=== PATIENT | male | born 1960 | race Caucasian/White ===

== ENCOUNTER 2016-10-19 22:44 | Emergency (ER) | payer OTHER ==
[~2016-10-19] VITALS: Ht 175.3 cm; Wt 73.9 kg
[~2016-10-19 22:44] MED LIST: FLEXERIL PO; NOHOMEMEDICATIONS
[2016-10-19 23:23] LABS: URINE BILIRUBIN NEGATIVE (Negative); URINE BLOOD 1+ (Negative); URINE COLOR YELLOW; URINE GLUCOSE-RANDOM* NEGATIVE (Negative); URINE KETONES NEGATIVE (Negative); URINE PROTEIN (DIPSTICK) NEGATIVE (Negative); URINE SPECIFIC GRAVITY <= 1.005 (1.003-1.035); URINE UROBILINOGEN 0.2 E.U./dl (0.2-1.0)
[2016-10-19 23:33] LABS: URINE LEUKOCYTES-REFLEX 3+ (Negative)
[2016-10-19 23:33] LABS: HEMATOCRIT 41.4 % (42.0-52.0); HEMOGLOBIN 14.2 gm/dL (14.0-18.0); MCH 32.9 pg (26.0-34.0); MCHC 34.3 g/dL (28.0-37.0); MCV 95.8 fL (80.0-100.0); PLATELET COUNT 165 thou/uL (150-400); RBC 4.32 mil/uL (4.50-6.00); RDW 13.4 % (10.5-14.5); WBC 12.5 thou/uL (4.0-11.0)
[2016-10-19 23:35] LABS: MANUAL DIFF YES
[2016-10-19 23:36] LABS: CALCIUM 9.1 mg/dL (8.5-10.1); CREATININE 1.1 mg/dL (0.7-1.3); POTASSIUM 3.6 mmol/L (3.5-5.1)
[2016-10-19 23:40] LABS: SQUAMOUS 0-3 Few /LPF (0-3)
[2016-10-19 23:41] LABS: CASTS None Seen /LPF (None Seen); CRYSTALS None Seen /LPF (None Seen); URINE RBC 3-10 Few /HPF (0-2); URINE WBC-REFLEX >25 Many /HPF (0-5)
[2016-10-19 23:42] LABS: ALBUMIN 3.8 g/dL (3.4-5.0); TOTAL BILIRUBIN 0.6 mg/dL (<0.1-1.0); TOTAL PROTEIN 8.8 g/dL (6.4-8.2)
[2016-10-20] MEDS ORDERED: BACTRIM DS TAB1 EACH PO (00:04)
[2016-10-20] MEDS ORDERED: FLOMAX0.4 MG PO (00:04)
[2016-10-20 00:17] VITALS: BP 109/59
[2016-10-20 00:34] LABS: ABSOLUTE NEUTROPHILS 9.8 thou/uL (1.4-8.2); LARGE PLATELETS RARE; TOTAL CELL COUNT 100
== END 2016-10-20 00:24 | disposition home or self-care (01) ==
LOC: ER 22:44
PROVIDERS: Emergency Medicine
DX: N41.0 Acute prostatitis (principal); F10.99 Alcohol use, unspecified with unspecified alcohol-induced disorder

== ENCOUNTER 2020-07-13 10:36 | Emergency (ER) | payer OTHER ==
[~2020-07-13] VITALS: Ht 172.7 cm; Wt 70.8 kg
[~2020-07-13 10:36] MED LIST changes: +BACTRIM DS TAB1 EACH PO; +FLOMAX0.4 MG PO
[2020-07-13 11:19] LABS: ABSOLUTE NEUTROPHILS 3.5 thou/uL (1.4-8.2); BASOPHILS 0.3 % (0.0-2.0); EOSINOPHILS 0.7 % (0.0-3.0); HEMATOCRIT 40.6 % (42.0-52.0); HEMOGLOBIN 13.5 gm/dL (14.0-18.0); LYMPHOCYTES 22.1 % (24.0-44.0); MCH 32.5 pg (26.0-34.0); MCHC 33.2 g/dL (28.0-37.0); MCV 97.9 fL (80.0-100.0); MONOCYTES 7.6 % (1.0-8.0); PLATELET COUNT 199 thou/uL (150-400); POLYS 69.3 % (36.0-66.0); RBC 4.15 mil/uL (4.50-6.00); RDW 13.5 % (10.5-14.5); WBC 5.1 thou/uL (4.0-11.0)
[2020-07-13 11:22] LABS: URINE BILIRUBIN NEGATIVE (Negative); URINE BLOOD NEGATIVE (Negative); URINE CLARITY CLEAR; URINE COLOR YELLOW; URINE GLUCOSE-RANDOM* NEGATIVE (Negative); URINE KETONES NEGATIVE (Negative); URINE LEUKOCYTES-REFLEX NEGATIVE (Negative); URINE NITRITE-REFLEX NEGATIVE (Negative); URINE PROTEIN (DIPSTICK) NEGATIVE (Negative); URINE UROBILINOGEN 0.2 E.U./dl (0.2-1.0)
[2020-07-13 11:28] LABS: ANION GAP 7 mmol/L (7-16); BUN 11 mg/dL (7-18); CALCIUM 8.4 mg/dL (8.5-10.1); CHLORIDE 101 mmol/L (98-107); CO2 27 mmol/L (21-32); GLUCOSE 130 mg/dL (74-106); SODIUM 135 mmol/L (136-145)
[2020-07-13 11:38] LABS: ALBUMIN 3.7 g/dL (3.4-5.0); MAGNESIUM 1.9 mg/dL (1.8-2.4); SGOT 27 U/L (15-37); SGPT 41 U/L (16-63); TOTAL BILIRUBIN 0.2 mg/dL (0.2-1.0); TOTAL PROTEIN 8.3 g/dL (6.4-8.2); TROPONIN-I <0.06 ng/mL (<0.06)
--- NOTE | 2020-07-13 12:27 | EKG ---
[address] [address] ELECTROCARDIOGRAM REPORT Name: LUCIEN ARRIAGA Room #: REG Mary Kate#: [id number] Admission: 07/13/20 Attend Phys: Discharge: Date of : 64 Report #: [id number] [facility] ED Test Date: 2020-07-13 Test Time: 10:54:03 Pat Name: LUCIEN ARRIAGA Department: Room: Gender: M [employer]: : 1960 Requested By: Joshua Kerr Order Number: [id number] MD: Terrance Colón Measurements Intervals [place] Rate: 72 P: 44 IN: 147 QRS: 77 QRSD: 101 T: 22 QT: 379 QTc: 415 Interpretive Statements Sinus rhythm Compared to ECG 05/10/2011 11:45:46 No significant change Electronically Signed On 07-13-2020 12:26:55 CDT by Terrance Colón [email or web address] <ELECTRONICALLY SIGNED> By: Terrance Colón MD, [facility] 07/13/20 1226 1054 1054 Terrance Colón MD, FACC /EPI
[2020-07-13 13:11] VITALS: BP 117/68
== END 2020-07-13 13:11 | disposition home or self-care (01) ==
LOC: ER 10:36
PROVIDERS: Emergency Medicine
DX: R53.81 Other malaise (principal); R53.83 Other fatigue; R53.1 Weakness; R11.0 Nausea; R25.1 Tremor, unspecified; Z79.899 Other long term (current) drug therapy